=== PATIENT | female | born 1985 ===

== ENCOUNTER 2020-08-24 16:00 | Inpatient (IN) | payer MEDICAID, OTHER ==
[2020-08-24] MEDS ORDERED: ONDANSETRON 4 MG/2 ML INJ IV PRN (17:47)
[2020-08-24] MEDS ORDERED: TERBUTALINE 1 MG/1 ML INJ SUB-Q PRN (17:47)
[2020-08-24] MEDS ORDERED: NALOXONE 0.4 MG/1 ML INJ IV PRN (17:47)
[2020-08-24] MEDS ORDERED: BUTORPHANOL 2 MG/1 ML INJ IV PRN ×2 (17:47)
[2020-08-24] MEDS ORDERED: OXYTOCIN 10 UNIT/1 ML INJ IM PRN (17:47)
[2020-08-24] MEDS ORDERED: LOPERAMIDE 2 MG CAP PO PRN (17:47)
[2020-08-24] MEDS ORDERED: METHYLERGONOVINE MALEATE 0.2 MG/ML VIAL IM PRN (17:47)
[2020-08-24] MEDS ORDERED: ePHEDrine SULFATE 50 MG/1 ML INJ IV PRN ×2 (17:47→23:19)
[2020-08-24] MEDS ORDERED: MINERAL OIL 30 ML ORAL LIQD PO PRN (17:47)
[2020-08-24] MEDS ORDERED: CARBOPROST TROMETHAMINE 250 MCG/1 ML INJ IM PRN (17:47)
[2020-08-24] MEDS ORDERED: miSOPROStol 200 MCG TAB PR PRN (17:47)
[2020-08-24] MEDS ORDERED: PROMETHAZINE 25 MG TAB PO PRN (17:47)
[2020-08-24] MEDS ORDERED: ACETAMINOPHEN 325 MG TAB PO PRN (17:47)
[2020-08-24] MEDS ORDERED: LIDOCAINE (2%) 20 MG/1 ML VIAL 20 ML MDV INFILTRATI ONE (17:47)
[2020-08-24] MEDS ORDERED: LACTATED RINGERS 1,000 ML IV SCH (18:00)
[2020-08-24] MEDS ORDERED: OXYTOCIN DRIP 30 UNITS/500 ML BAG IV SCH ×2 (18:00)
[2020-08-24 18:27] LABS: Hematocrit 42.2 % (30.3-42.9); Hemoglobin 14.3 gm/dl (10.1-14.3); Mean Corpuscular HGB Conc 34 % (30-34); Mean Corpuscular Volume 91 fl (79-97); Platelet Count 305 K/mm3 (140-440); Red Blood Count 4.64 M/mm3 (3.65-5.03); Red Cell Distribution Width 13.2 % (13.2-15.2)
--- NOTE | 2020-08-24 18:29 | History and Physical Report ---
History of Present Illness Date of examination: 08/24/20 Chief complaint: contractions History of present illness: 34 yo G1 at at 39w0d VIANCA 08/31/20 c/b retroplacental hemmorage (resolved 1), nepher with down syndrome presenting in acitve labor 4 cm. Denies vaginal bleeding or LOF. +FM. Denies PIH symptoms. PNC labs reviewed GBS neg HIV NR 1hr GTT 101 Quad neg GCCT neg H/H 13.3/39.7, Plat 324 O pos, Ab neg RNR NR, HBSAG NR Rubella immune Past History Past Medical History: no pertinent history Past Surgical History: no surgical history Family/Genetic History: Down's syndrome Social history: no significant social history - Obstetrical History Expected Date of Delivery: 08/31/20 Actual Gestation: 39 Week(s) 0 Day(s) : 1 Medications and Allergies Allergies Allergy/AdvReac Type Severity Reaction Status Date / Time No Known Allergies Allergy Verified 08/24/20 17:14 Active Meds: Active Medications Acetaminophen (Acetaminophen 325 Mg Tab) 650 mg PO Q4H PRN PRN Reason: Pain, Mild (1-3) Butorphanol Tartrate (Butorphanol 2 Mg/1 Ml Inj) 1 mg IV Q2H PRN PRN Reason: Pain, Moderate(4-6) LABOR PAIN Butorphanol Tartrate (Butorphanol 2 Mg/1 Ml Inj) 2 mg IV Q2H PRN PRN Reason: Pain , Severe (7-10) Carboprost Tromethamine (Carboprost Tromethamine 250 Mcg/1 Ml Inj) 250 mcg IM ONCE PRN PRN Reason: Uterine Bleeding Ephedrine Sulfate (Ephedrine Sulfate 50 Mg/1 Ml Inj) 10 mg IV Q2M PRN PRN Reason: Hypotension Oxytocin/Sodium Chloride (Pitocin/Ns 30 Unit/500ml) 30 units in 500 mls @ 2 mls/hr IV TITR JOSELINE; Protocol Lactated Ringer's (Lactated Ringers) 1,000 mls @ 125 mls/hr IV DIRECT JOSELINE Oxytocin/Sodium Chloride (Pitocin/Ns 30 Unit/500ml) 30 units in 500 mls @ 40 mls/hr IV TITR JOSELINE; Protocol Loperamide HCl (Loperamide 2 Mg Cap) 2 mg PO ONCE PRN PRN Reason: give with Hemabate Methylergonovine Maleate (Methylergonovine Maleate 0.2 Mg/Ml Vial) 0.2 mg IM ONCE PRN PRN Reason: Uterine Bleeding Mineral Oil (Mineral Oil 30 Ml Oral Liqd) 30 ml PO QHS PRN PRN Reason: Constipation Misoprostol (Misoprostol 200 Mcg Tab) 800 mcg [place] ONCE PRN PRN Reason: Uterine Bleeding Naloxone HCl (Naloxone 0.4 Mg/1 Ml Inj) 0.1 mg IV Q2MIN PRN PRN Reason: Res Rate </= 8 or 02 SAT < 92% Ondansetron HCl (Ondansetron 4 Mg/2 Ml Inj) 4 mg IV Q8H PRN PRN Reason: Nausea And Vomiting Oxytocin (Oxytocin 10 Unit/1 Ml Inj) 10 unit IM ONCE PRN PRN Reason: Uterine Bleeding Promethazine HCl (Promethazine 25 Mg Tab) 25 mg PO Q6H PRN PRN Reason: Nausea And Vomiting Terbutaline Sulfate (Terbutaline 1 Mg/1 Ml Inj) 0.25 mg SUB-Q ONCE PRN PRN Reason: Hyperstimulation/Hypertonicity Review of Systems All systems: negative (expect HPI) - Vital Signs Vital signs: Vital Signs Pulse Pulse Ox 99 H 98 08/24/20 16:43 08/24/20 16:43 Temp Pulse Resp BP Pulse Ox 98.5 F 91 H 20 131/86 98 08/24/20 17:15 08/24/20 18:18 08/24/20 17:15 08/24/20 17:15 08/24/20 18:18 - Physical Exam Abdomen: Positive: normal appearance, normal bowel sounds Uterus: Positive: enlarged - Obstetrical FHR: category 1 Uterine Contraction Monitor Mode: External Cervical Dilatation: 4 Uterine Contraction Frequency (min): 4 Uterine Contraction Pattern: Regular Results Result Diagrams: 08/24/20 18:00 All other labs normal. Assessment and Plan - Patient Problems (1) Active labor at term Current Visit: Yes Status: Acute Plan to address problem: For augmentation of labor given now 4 cm at term --Pitocin per protocol for IOL --Stadol prn pain, ok for epidural --Anticipate --GBS neg
[2020-08-24] MEDS ORDERED: NALOXONE 2 MG/2 ML INJ IV PRN (23:19)
--- NOTE | 2020-08-24 23:21 | Anesthesia Consultation ---
Anesthesia Consult and Med Hx Date of service: 08/24/20 - Airway Anesthetic Teeth Evaluation: Good ROM Head & Neck: Adequate Mental/Hyoid Distance: Adequate Mallampati Class: Class II Intubation Access Assessment: Probably Good - Pulmonary Exam CTA: Yes - Cardiac Exam Cardiac Exam: RRR - Pre-Operative Health Status ASA Pre-Surgery Classification: ASA2 Proposed Anesthetic Plan: Epidural - Pulmonary Hx Asthma: No - Cardiovascular System Hx Hypertension: No - Central Nervous System Hx Seizures: No Hx Psychiatric Problems: No - Endocrine Hx Renal Disease: No Hx Hypothyroidism: No Hx Hyperthyroidism: No - Hematic Hx Anemia: No Hx Sickle Cell Disease: No - Other Systems Hx Alcohol Use: No
--- NOTE | 2020-08-24 23:40 | Progress Note ---
Labor Epidural - Labor Epidural Start Time: 23:29 Stop Time: 23:32 Performed by:: BOB SHEIKH Procedure: Patient is requesting epidural for labor pain. H&P, and labs reviewed. Procedure explained, questions answered, consent obtained. Patient in sitting position with blood pressure cuff and pulse ox on and working. Timeout performed immediately before start of procedure. Sterile chlorahexadine 0.5% prep/drape. 3 mL 1% lidocaine skin wheal at L[3]-L[4]. 18-gauge Double the Donationtead epidural needle advanced to [id number] with saline at [7] cm. 27-gauge spinal needle advanced until clear, free-flowing CSF. Intrathecal dexmedetomidine [5] mcg administered and needle removed. Epidural catheter advanced to [12] cm, negative aspiration for blood and csf, negative test dose 3 ml 1.5% lidocaine with epinephrine. Sterile steri-strips and tegaderm applied, followed by tape reinforcement. Patient tolerated procedure well.
[2020-08-24] MEDS ORDERED: fentaNYL-BUPIV 2 MCG/ML-0.125% 200 MCG/100 ML BAG EPIDURAL SCH (23:45)
--- NOTE | 2020-08-25 07:49 | Procedure Note ---
OB Delivery Note - Delivery Date of Delivery: 08/25/20 Surgeon: JULIA FOWLER JR Estimated blood loss: 1000cc - Vaginal Delivery presentation: vertex Delivery position: OA Intrapartum events: none Delivery induction: AROM Delivery augmentation: rupture of membranes Delivery monitor: external FHT, external uterine Route of delivery: Delivery placenta: spontaneous Delivery laceration: 2nd degree, vaginal side wall Delivery repair: vicryl Anesthesia: epidural Delivery comments: Spontaneous delivery of male infant at 0651. APGARS 8/9. Height/Weight pending. Spontaneous delivery of placenta. Fundus firm. Repaired 2nd degree perineal and left sidewall with 2-0 vicryl. EBL 1L. - A at 1 minute: 8 at 5 minutes: 9 Infant Gender: Male
[2020-08-25] MEDS ORDERED: ONDANSETRON 4 MG/2 ML INJ IV PRN (08:00)
[2020-08-25] MEDS ORDERED: PROMETHAZINE 25 MG TAB PO PRN (08:00)
[2020-08-25] MEDS ORDERED: diphenhydrAMINE 25 MG CAP PO PRN (08:00)
[2020-08-25] MEDS ORDERED: WITCH HAZEL/ GLYCERIN PAD TP PRN (08:00)
[2020-08-25] MEDS ORDERED: LANOLIN/ZINC/DIMETHICONE (LANSINOH) 7 GM TP PRN (08:00)
[2020-08-25] MEDS ORDERED: PROMETHAZINE 25 MG RECT SUPP PR PRN (08:30)
[2020-08-25] MEDS ORDERED: oxyCODONE /ACETAMINOPHEN 5-325MG TAB PO PRN (08:30)
--- NOTE | 2020-08-25 09:10 | Procedure Note ---
Date of procedure: 08/25/20 Pre-op diagnosis: retained placenta s/p umbilical cord avulsion Post-op diagnosis: same Procedure: Preoperative diagnosis: 1. Retained placenta Postoperative diagnosis: 1. Same Operation performed: 1. Examined under anesthesia 2. Dilation & curettage, ultrasound guided Surgeon: Julia Fowler MD Adult Education Professional: Erum Saravia MD Anesthesia: IV and epidural EBL: 1000cc UOP: 100cc IVF 2 units pRBCs ordered Pathology specimens: Uterine contents Complications: none Disposition and condition: To the PACU in stable condition then discharged home Findings: 1. 12 week size mobile uterus 2. Moderate amount of products of conception Statement of medical necessity: 34 yo A2 POD0 s/p of 31 week gestation woman is post failed placental extraction after cord avulsion after the vaginal delivery. She desired surgical management. The procedure risk benefits, indications and alternatives reviewed patient. Description of operation: After informed consent, the patient was taken to the OR and placed in Krystian stirrups after general anesthesia was administered. An exam under anesthesia was performed with the findings noted above. The vagina was prepped and draped in the usual sterile fashion. Did not catheterization of the bladder was performed. A duckbill speculum was placed to visualize the cervix. A ring forcep was placed onto the anterior cervical lip. The uterus was gently sounded to 14 centimeters. Suction was calibrated to 60 mmHg, and a 14 millimeters curette was gently advanced into the uterine cavity fundus. Suction was applied, and the curette was rotated to evacuate the uterus of products of conception. A sharp curettage and Bango currettage was performed until a gritty texture was noted. Suction curettage was repeated to clear the remaining products of conception. Minimal bleeding was noted. The ring forcep was removed from the cervix with good hemostasis noted. The speculum was removed. Patient tolerated the procedure well and was taken to recovery room in good condition. Anesthesia: epidural, none (IV pain medication) Surgeon: JULIA FOWLER JR Adult Education Professional: ERUM SARAVIA Estimated blood loss: other (1000cc) Urine output: 200 Pathology: list (retained placenta) Specimen disposition: to lab Condition: stable Disposition: floor
[2020-08-25] MEDS: IBUPROFEN 600 MG TAB PO SCH ×2 (15:10→20:35)
[2020-08-25 18:50] LABS: Hematocrit 28.8 % (30.3-42.9)
--- NOTE | 2020-08-25 20:02 | Post Anesthesia Evaluation ---
- Post Anesthesia Evaluation Patient Participated: Yes Airway Patent: Yes Stable Respiratory Function: Yes Nausea/Vomiting: No Temp > 96.8F: Yes Pain Manageable: Yes Adequeate Hydration: Yes Anesthesia Complications: No Block Receding Appropriately: Yes
[2020-08-25] MEDS ORDERED: MAGNESIUM HYDROXIDE (MOM) ORAL LIQD UDC PO PRN (22:00)
[2020-08-26] MEDS: IBUPROFEN 600 MG TAB PO SCH ×2 (04:17→18:27)
--- NOTE | 2020-08-26 11:22 | Progress Note ---
Assessment and Plan A: PP Day #1 Maternal Tachycardia Anemia P: Follow Routine Orders Infed 100mg IM x 1 dose Monitor Pulse Subjective - Subjective Date of service: 08/26/20 Patient reports: appetite normal, voiding normally, pain well controlled, flatus, bowel movement, ambulating normally, other (Denies HAs, visual changes, N&V, dizziness) [place]: doing well, bottle feeding Objective - Vital Signs Latest vital signs: Vital Signs Temp Pulse Resp BP BP Pulse Ox 08/26/20 08:46 97.6 F 109 H 18 103/70 99 08/26/20 00:53 98.3 F 116 H 18 111/75 98 08/25/20 16:25 97.5 F L 103 H 20 104/69 08/25/20 12:45 98.2 F 119 H 20 113/83 Intake and Output 08/25/20 08/26/20 08/26/20 22:59 06:59 14:59 Intake Total 660 Output Total 400 Balance 260 Intake: Oral 660 Output: Urine 400 Void 400 Other: Total, Intake Amount 240 Total, Output Amount 400 # Voids Void 1 - Exam Breasts: Present: normal Lungs: Present: Clear to auscultation, Normal air movement Abdomen: Present: normal appearance, soft, normal bowel sounds Uterus: Present: normal, firm, fundal height below umbilicus Extremities: Present: normal - Labs Labs: Abnormal lab results 08/25/20 Range/Units 18:27 Hgb 10.0 L D (10.1-14.3) gm/dl Hct 28.8 L D (30.3-42.9) %
[2020-08-26] MEDS ORDERED: IRON DEXTRAN COMPLEX 100 MG/2 ML INJ IM SCH (12:00)
[2020-08-27] MEDS: IBUPROFEN 600 MG TAB PO SCH ×3 (00:18→12:08)
--- NOTE | 2020-08-27 10:12 | Discharge Summary ---
Providers - Providers Date of Admission: 08/24/20 17:47 Date of discharge: 08/27/20 Attending physician: ISIAH SARAVIA MD Primary care physician: ISIAH SARAVIA MD Hospitalization Reason for admission: active labor, IUP at term Delivery: Episiotomy: none Laceration: 2nd degree Incision: normal, intact Other procedures: none complications: other (anemia, tachycardia) Discharge diagnosis: IUP at term delivered baby: male Hospital course: Pt presented to [facility] in active labor and had a . Pt dev anemia with tachycardia pp and had Infed IM. Pt's HR eventually stabilized and she was d/c'd home with Ferrous Sulfate. Condition at discharge: Stable Disposition: DC-01 TO HOME OR SELFCARE Plan - Discharge Medications Prescriptions: Ferrous Sulfate [Feosol 325 MG tab] 325 mg PO QDAY 5 Days #120 tablet Ibuprofen [Motrin 600 MG tab] 600 mg PO Q6H #30 tablet - Provider Discharge Summary Additional instructions: [] Smoking cessation referral if applicable(refer to patient education folder for contact #) [] Refer to [facility] Booklet Call your doctor immediately for: * Fever > 100.5 * Heavy vaginal bleeding ( >1 pad per hour) * Severe persistent headache * Shortness of breath * Reddened, hot, painful area to leg or breast * Drainage or odor from incision. * Keep incision clean and dry at all times and follow doctor's instructions regarding bathing/showering - Follow up plan Follow up: ISIAH SARAVIA MD [Primary Care Provider] - 6 Weeks
[2020-08-27 15:38] VITALS: BP 108/65
== END 2020-08-27 16:30 | disposition home or self-care (01) | DRG 807 ==
LOC: TRG 16:00 → APU 16:16 → LD 17:47 → TRG 17:47 → OB 08-25 10:18
PROVIDERS: ADMIT Obstetrics & Gynecology
PROC: 10E0XZZ Delivery of Products of Conception, External Approach (ICD-10-PCS; principal; 2020-08-25)
PROC: 0KQM0ZZ Repair Perineum Muscle, Open Approach (ICD-10-PCS; 2020-08-25)
PROC: 10907ZC Drainage of Amniotic Fluid, Therapeutic from Products of Conception, Via Natural or Artificial Opening (ICD-10-PCS; 2020-08-25)
PROC: 3E0R3BZ Introduction of Anesthetic Agent into Spinal Canal, Percutaneous Approach (ICD-10-PCS; 2020-08-25)
PROC: 00HU33Z Insertion of Infusion Device into Spinal Canal, Percutaneous Approach (ICD-10-PCS; 2020-08-25)
DX: O70.1 Second degree perineal laceration during delivery (principal); Z37.0 Single live birth; O99.02 Anemia complicating childbirth; R00.0 Tachycardia, unspecified; O99.892 Other specified diseases and conditions complicating childbirth; Z20.822 Contact with and (suspected) exposure to COVID-19; Z3A.39 39 weeks gestation of pregnancy
CPT/HCPCS: 36415; 85014; 85018; 85027; 86592; 86850; 86900; 86901; G0378; J1750; J2590; J7120; U0003